=== PATIENT | male | born 1945 | race Caucasian/White ===

== ENCOUNTER 2019-12-23 06:13 | Day surgery (SDC) | payer MEDICARE, BC ==
[2019-12-22 13:08] LABS: BASOPHILS # (AUTO) 0.1 X10'3 (0-0.2); BASOPHILS % (AUTO) 0.7 % (0-1); EOSINOPHILS # (AUTO) 0.3 X10'3 (0-0.9); EOSINOPHILS % (AUTO) 4.2 % (0-6); HEMATOCRIT 41.8 % (42.0-52.0); HEMOGLOBIN 13.8 g/dl (14.0-17.9); LYMPHOCYTES # (AUTO) 1.1 X10'3 (1.1-4.8); MEAN CORPUSCULAR HEMOGLOBIN 30.6 PG (27.0-31.0); MEAN CORPUSCULAR VOLUME 92.8 FL (78-98); MONOCYTES % (AUTO) 13.2 % (2-12); NEUTROPHILS # (AUTO) 5.3 X10'3 (1.8-7.7); NEUTROPHILS % (AUTO) 67.9 % (42-75); PLATELET COUNT 219 X10'3 (140-440); RED CELL DISTRIBUTION WIDTH 13.3 % (11.5-14.5); WHITE BLOOD COUNT 7.8 X10'3 (4.5-11.0)
[2019-12-22 13:21] LABS: ALBUMIN 3.3 G/DL (3.4-5.0); ANION GAP 11 (8-16); BLOOD UREA NITROGEN 28 MG/DL (7-18); BUN/CREATININE RATIO 21.4 (5.4-32.0); CHLORIDE 104 MMOL/L (99-107); CREATININE 1.31 MG/DL (0.60-1.10); GLUCOSE 116 MG/DL (70-104); POTASSIUM 4.7 MMOL/L (3.5-5.1); SODIUM 140 MMOL/L (135-145); TOTAL CARBON DIOXIDE 25.2 MMOL/L (24-32); eGFR 53 ML/MIN
[2019-12-22 13:24] LABS: PARTIAL THROMBOPLASTIN TIME 29 SECONDS (22-32)
[~2019-12-23] VITALS: Ht 177.8 cm; Wt 103.1 kg
[2019-12-23] VITALS (11 sets, daily range): BP systolic 96–115; BP diastolic 52–68
[2019-12-23] MEDS ORDERED: LORazepam 0.5 MG tablet PO PRN (06:30)
[2019-12-23] MEDS ORDERED: diphenhydrAMINE 25mg capsule PO PRN (06:30)
[2019-12-23] MEDS ORDERED: WARF5TAB PO (06:38)
[2019-12-23] MEDS ORDERED: CARV-50 PO (06:38)
[2019-12-23] MEDS ORDERED: GABA600T13 PO (06:38)
[2019-12-23] MEDS ORDERED: ZET10T PO (06:38)
[2019-12-23] MEDS ORDERED: EPLE25TA4 PO (06:38)
[2019-12-23] MEDS ORDERED: SIMV-42 PO (06:38)
[2019-12-23] MEDS ORDERED: AMA1T PO (06:38)
[2019-12-23] MEDS ORDERED: FURO-150 PO (06:38)
[2019-12-23] MEDS ORDERED: ASPI81TA52 PO (06:38)
[2019-12-23] MEDS ORDERED: LOSA50TA3 PO (06:38)
[2019-12-23] MEDS: normal saline 1,000 ML IV SCH ×2 (06:48→12:26)
[2019-12-23] MEDS ORDERED: nitroGLYCERIN-Tridil 50MG/D5W 250 ML IV ONE (07:33)
[2019-12-23] MEDS ORDERED: heparin 1,000unit/ml 10ml vial 10 ML ONE (07:34)
[2019-12-23] MEDS ORDERED: LIDOcaine 1% (10mg/ml)w/preservative injection 20ml MDV ONE (07:34)
[2019-12-23] MEDS ORDERED: fentaNYL/PF 50MCG/1 ML 2ML syringe ONE (07:34)
[2019-12-23] MEDS ORDERED: midazolam 2 mg/2 ml injection ONE (07:34)
[2019-12-23] MEDS ORDERED: iohexol 350 MG/ML 50ML vial IV ONE (07:34)
[2019-12-23] MEDS ORDERED: iohexol 350MG/ML 100ml bottle IV ONE (07:34)
--- NOTE | 2019-12-23 07:50 | NUR ---
pt left floor for procedure.
--- NOTE | 2019-12-23 08:46 | NUR ---
Contacted pt's , as per his request. She states she will wait to hear how procedure went before she drives home. I will call her after he returns.
--- NOTE | 2019-12-23 09:09 | NUR ---
PT BACK IN ROOM, FLUIDS INFUSING ORDERED. PT VS STABLE CHARTED. PT SITE SOFT, JENNI CD&I. WILL CONTINUE TO MONITOR.
[2019-12-23] MEDS ORDERED: normal saline 1000ml 1,000 ML IV SCH (09:25)
[2019-12-23] MEDS ORDERED: acetylcysteine 200 MG/ml 4ml vial PO SCH (11:00)
--- NOTE | 2019-12-23 12:31 | NUR ---
pt voided 650 ml clear yellow.
== END 2019-12-23 15:00 | disposition home or self-care (01) ==
LOC: SSTAY O 06:13 → MED 3N 06:14 → SSTAY O 15:00
PROVIDERS: ATTEND Internal Medicine Cardiovascular Disease
DX: R94.39 Abnormal result of other cardiovascular function study (principal); I25.10 Atherosclerotic heart disease of native coronary artery without angina pectoris; E78.5 Hyperlipidemia, unspecified; I11.0 Hypertensive heart disease with heart failure; I50.22 Chronic systolic (congestive) heart failure; I05.8 Other rheumatic mitral valve diseases; G47.30 Sleep apnea, unspecified; M19.90 Unspecified osteoarthritis, unspecified site; Z95.1 Presence of aortocoronary bypass graft; Z79.01 Long term (current) use of anticoagulants; Z79.899 Other long term (current) drug therapy; Z79.82 Long term (current) use of aspirin; Z87.891 Personal history of nicotine dependence; Z95.810 Presence of automatic (implantable) cardiac defibrillator; Z98.890 Other specified postprocedural states; Z82.49 Family history of ischemic heart disease and other diseases of the circulatory system
CPT/HCPCS: 36415; 80048; 85025; 85610; 85730; 93005; 93461; 99152; 99153; C1769; J1644; J2001; J2250; J3010; J7030; Q0163; Q9967; A4620; A6258; C1760; J3490

== ENCOUNTER → 2020-04-29 | Outpatient (CLI) | payer MEDICARE, BC ==
[~2020-04-29] MED LIST: AMA1T PO; ASPI81TA52 PO; CARV-50 PO; EPLE25TA4 PO; FURO-150 PO; GABA600T13 PO; LOSA50TA3 PO; SIMV-42 PO; WARF5TAB2 PO; ZET10T PO
== END | disposition home or self-care (01) ==
LOC: RAD 11:59
PROVIDERS: ATTEND Internal Medicine Cardiovascular Disease
DX: I50.22 Chronic systolic (congestive) heart failure (principal); I51.7 Cardiomegaly; M81.0 Age-related osteoporosis without current pathological fracture; M47.814 Spondylosis without myelopathy or radiculopathy, thoracic region; Z95.1 Presence of aortocoronary bypass graft
CPT/HCPCS: 71046

== ENCOUNTER 2020-05-04 06:26 | Day surgery (SDC) | payer MEDICARE, BC ==
[2020-05-03 13:25] LABS: BASOPHILS # (AUTO) 0.1 X10'3 (0-0.2); BASOPHILS % (AUTO) 0.7 % (0-1); EOSINOPHILS # (AUTO) 0.3 X10'3 (0-0.9); EOSINOPHILS % (AUTO) 4.2 % (0-6); HEMATOCRIT 40.2 % (42.0-52.0); HEMOGLOBIN 13.5 g/dl (14.0-17.9); LYMPHOCYTES # (AUTO) 1.2 X10'3 (1.1-4.8); MEAN CORPUSCULAR HEMOGLOBIN 31.7 PG (27.0-31.0); MEAN CORPUSCULAR HGB CONC 33.6 g/dL (33.0-36.5); MEAN CORPUSCULAR VOLUME 94.1 FL (78-98); MEAN PLATELET VOLUME 9.5 FL (7.4-10.4); MONOCYTES # (AUTO) 1.1 X10'3 (0-0.9); MONOCYTES % (AUTO) 14.2 % (2-12); NEUTROPHILS # (AUTO) 5.1 X10'3 (1.8-7.7); NEUTROPHILS % (AUTO) 65.9 % (42-75); PLATELET COUNT 202 X10'3 (140-440); RED BLOOD COUNT 4.28 X10'6 (4.70-6.10); RED CELL DISTRIBUTION WIDTH 14.5 % (11.5-14.5); WHITE BLOOD COUNT 7.8 X10'3 (4.5-11.0)
[2020-05-03 13:35] LABS: PARTIAL THROMBOPLASTIN TIME 29 SECONDS (22-32)
[2020-05-03 13:37] LABS: ALBUMIN 3.3 G/DL (3.4-5.0); ANION GAP 8 (8-16); BLOOD UREA NITROGEN 26 MG/DL (7-18); BUN/CREATININE RATIO 17.2 (5.4-32.0); CHLORIDE 106 MMOL/L (99-107); CREATININE 1.51 MG/DL (0.60-1.10); GLUCOSE 127 MG/DL (70-104); POTASSIUM 4.2 MMOL/L (3.5-5.1); SODIUM 138 MMOL/L (135-145); eGFR 45 ML/MIN
[~2020-05-04] VITALS: Ht 175.3 cm; Wt 104.0 kg
[2020-05-04] VITALS (10 sets, daily range): BP systolic 106–147; BP diastolic 55–80
[2020-05-04] MEDS ORDERED: ceFAZolin 2gm in dextrose, iso 50 ML IV ONE ×2 (06:45→07:30)
[2020-05-04] MEDS ORDERED: NITR0.4T48 SL (07:13)
[2020-05-04] MEDS ORDERED: CARV-50 PO (07:13)
[2020-05-04] MEDS ORDERED: WARF-55 PO (07:13)
[2020-05-04] MEDS ORDERED: ceFAZolin 1000mg inj ONE (07:31)
[2020-05-04] MEDS ORDERED: fentaNYL/PF 50MCG/1 ML 2ML syringe ONE ×3 (07:31→09:58)
[2020-05-04] MEDS ORDERED: LIDOcaine 1% W/epiNEPHrine 1:100,000 20ml vial ONE ×2 (07:31→08:42)
[2020-05-04] MEDS ORDERED: midazolam 2 mg/2 ml injection ONE ×3 (07:31→09:58)
[2020-05-04] MEDS ORDERED: iohexol 350 MG/ML 50ML vial IV ONE ×2 (08:07→09:57)
--- NOTE | 2020-05-04 10:35 | NUR ---
Patient has decided to reschedule her heart cath as the equipment in the [employer] has broken down. Dr. Durán has been informed and agrees with this plan. Patient to tentatively will reschedule for next Saturday. Patients VSS, PIV removed and intact, and patient received no sedation or pain meds in the [employer]. Patient has been educated regarding ativan, and benadryl medication administration, side effects, no driving, and that she may be sleepy. Patient states an understanding and agrees with this education.
[2020-05-04] MEDS ORDERED: normal saline 1000ml 1,000 ML IV SCH (12:15)
[2020-05-04] MEDS ORDERED: HYDROcodone/acetaminophen 10/325mg tab PO PRN (12:15)
[2020-05-04] MEDS ORDERED: HYDROcodone/acetaminophen 5mg/325mg tablet PO PRN (12:15)
== END 2020-05-04 17:00 | disposition home or self-care (01) ==
LOC: SSTAY O 06:26
PROVIDERS: ATTEND Internal Medicine Cardiovascular Disease
DX: Z45.02 Encounter for adjustment and management of automatic implantable cardiac defibrillator (principal); I25.10 Atherosclerotic heart disease of native coronary artery without angina pectoris; I42.9 Cardiomyopathy, unspecified; I11.0 Hypertensive heart disease with heart failure; I50.22 Chronic systolic (congestive) heart failure; Z95.1 Presence of aortocoronary bypass graft; E78.49 Other hyperlipidemia; D68.8 Other specified coagulation defects; G47.30 Sleep apnea, unspecified; M19.90 Unspecified osteoarthritis, unspecified site; Z98.890 Other specified postprocedural states; Z79.01 Long term (current) use of anticoagulants; Z87.891 Personal history of nicotine dependence; Z79.899 Other long term (current) drug therapy; Z82.49 Family history of ischemic heart disease and other diseases of the circulatory system
CPT/HCPCS: 33225; 33264; 36415; 71046; 80048; 85025; 85610; 85730; 93005; 99152; 99153; C1769; C1882; C1894; C1900; J0690; J2250; J3010; J3370; J7030; Q9967; 33224; 33263; A4565; A4620; A6449

== ENCOUNTER 2023-11-18 05:48 | Day surgery (SDC) | payer MEDICARE, BC ==
[2023-11-13 14:58] LABS: BASOPHILS % (AUTO) 0.4 % (0-1); EOSINOPHILS # (AUTO) 0.4 X10'3 (0-0.9); EOSINOPHILS % (AUTO) 4.2 % (0-6); LYMPHOCYTES # (AUTO) 1.3 X10'3 (1.1-4.8); LYMPHOCYTES % (AUTO) 14.9 % (21-51); MEAN CORPUSCULAR HGB CONC 34.1 g/dL (33.0-36.5); MEAN CORPUSCULAR VOLUME 93.8 FL (78-98); MEAN PLATELET VOLUME 8.9 FL (7.4-10.4); MONOCYTES % (AUTO) 11.5 % (2-12); NEUTROPHILS # (AUTO) 5.8 X10'3 (1.8-7.7); PRE OP HEMATOCRIT 43.5 % (42.0-52.0); PRE OP HEMOGLOBIN 14.8 g/dL (14.0-17.9); PRE OP PLATELET COUNT 196 X10'3 (140-440); PRE OP WHITE BLOOD COUNT 8.4 10'3 (4.8-10.8); RED BLOOD COUNT 4.64 X10'6 (4.70-6.10); RED CELL DISTRIBUTION WIDTH 13.8 % (11.5-14.5)
[2023-11-13 15:08] LABS: ALBUMIN 3.4 G/DL (3.4-5.0); ALBUMIN/GLOBULIN RATIO 0.8 (1.1-1.5); ALKALINE PHOSPHATASE 75 IU/L (46-116); BLOOD UREA NITROGEN 28 MG/DL (7-18); CALCIUM 8.1 MG/DL (8.5-10.1); CHLORIDE 104 MMOL/L (99-107); PRE OP ALT 26 U/L (30-65); PRE OP ANION GAP 7 (8-16); PRE OP AST 20 U/L (10-37); PRE OP BILIRUB, TOTAL 0.9 MG/DL (0.0-1.0); PRE OP GLUCOSE 144 MG/DL (70-104); PRE OP SODIUM 139 MMOL/L (135-145); TOTAL PROTEIN 7.6 G/DL (6.4-8.2); eGFR 49 ML/MIN
[~2023-11-18] VITALS: Ht 177.8 cm; Wt 98.4 kg
[2023-11-18] VITALS (8 sets, daily range): BP systolic 112–118; BP diastolic 60–69; PULSE 49–79; RESP 12–16; TEMP 97.2; O2SAT 94–97
[~2023-11-18 05:48] MED LIST changes: +ATOR10TA70 PO; +BETA1TAB20 PO; +EMPA10TA PO; +LOSA-416 PO; -LOSA50TA3 PO; +OMEG-167 PO; -SIMV-42 PO; -ZET10T PO
[2023-11-18] MEDS: cefazolin 2gm/D5W 100mL 100 ML IV ONE (06:03)
[2023-11-18] MEDS: ringers solution, lacted 1,000 ML IV SCH (06:21)
[2023-11-18] MEDS: DOCUMENT DATE & TIME OF BETA-BLOCKER PO ONE (06:21)
[2023-11-18] MEDS: famotidine 20mg tablet PO ONE (06:21)
[2023-11-18] MEDS ORDERED: LIDOcaine 1% (10mg/ml)w/preservative inj. 20ml MDV ONE (06:46)
[2023-11-18] MEDS ORDERED: ketorolac trometh. 30mg/ml inj. ONE (06:46)
[2023-11-18] MEDS ORDERED: LIDOcaine 1% w/EPI 1:100,000 inj. MDV 50 ML VIAL ONE (06:47)
[2023-11-18] MEDS ORDERED: BUPIVAcaine 0.5% inj/PF 30 ML ONE (06:47)
[2023-11-18] MEDS ORDERED: BUPIVAcaine/PF 5 mg/ml 10ml ONE (06:47)
[2023-11-18 07:18] LABS: INR 1.1 INR; PRE OP PARTIAL THROMB. TIME 29 SECONDS (22-32); PROTHROMBIN TIME 11.6 SECONDS (9.0-12.0)
[2023-11-18] MEDS ORDERED: fentaNYL/PF 50MCG/1 ML 2ML syringe ONE (07:22)
[2023-11-18] MEDS ORDERED: MIDAZolam 1 MG/ML 5ML VIAL ONE (07:22)
[2023-11-18] MEDS ORDERED: propofol inj 20 ML IV ONE (07:26)
[2023-11-18] MEDS ORDERED: labetalol 20mg/4ml (5mg/ml) syringe IV PRN (07:35)
[2023-11-18] MEDS ORDERED: morphine 2 MG/ML inj. syringe IV PRN (07:35)
[2023-11-18] MEDS ORDERED: ondansetron/PF 4mg/2ml inj IV PRN (07:35)
[2023-11-18] MEDS ORDERED: proCHLORperazine 10 MG/2 ml inj IV PRN (07:35)
[2023-11-18] MEDS ORDERED: enalaprilat dihydrate 2.5mg/2ml vial IV PRN (07:35)
[2023-11-18] MEDS ORDERED: meperidine/PF 25mg/ml syringe IV PRN ×3 (07:35)
[2023-11-18] MEDS ORDERED: morphine 4 MG/ML inj SYRINge IV PRN (07:35)
[2023-11-18] MEDS ORDERED: ringers solution, lacted 1,000 ML IV SCH (07:35)
[2023-11-18] MEDS ORDERED: HYDROcodone/acetaminophen 10/325mg tab PO PRN (08:30)
== END 2023-11-18 09:31 | disposition home or self-care (01) ==
LOC: PRE-OP 05:48 → PAS 09:31
PROVIDERS: ATTEND Orthopaedic Surgery
DX: S83.232D Complex tear of medial meniscus, current injury, left knee, subsequent encounter (principal); M94.262 Chondromalacia, left knee; M17.12 Unilateral primary osteoarthritis, left knee; M18.12 Unilateral primary osteoarthritis of first carpometacarpal joint, left hand; I11.9 Hypertensive heart disease without heart failure; E78.5 Hyperlipidemia, unspecified; I48.91 Unspecified atrial fibrillation; G47.30 Sleep apnea, unspecified; I25.2 Old myocardial infarction; E11.9 Type 2 diabetes mellitus without complications; Z98.890 Other specified postprocedural states; Z95.1 Presence of aortocoronary bypass graft; Z85.47 Personal history of malignant neoplasm of testis; Z79.899 Other long term (current) drug therapy; Z79.84 Long term (current) use of oral hypoglycemic drugs; Z79.82 Long term (current) use of aspirin; Z87.891 Personal history of nicotine dependence; Z85.828 Personal history of other malignant neoplasm of skin; X58.XXXD Exposure to other specified factors, subsequent encounter
CPT/HCPCS: 29881; 36415; 80053; 82948; 85025; 85610; 85730; J0690; J1885; J2250; J2704; J3010; J3490; J7120; S0020; Z7506; Z7512; A4215; A4618; A6449; A7000